=== PATIENT | female | born 1990 | race Caucasian/White ===

== ENCOUNTER 2016-12-04 07:27 | Inpatient (IN) | payer BC, OTHER ==
[2016-12-04] MEDS ORDERED: Dinoprostone* 10 MG VAG.SUPP VAGINAL ONE (09:50)
[2016-12-04] MEDS ORDERED: Nalbuphine* 20 MG/ML 1 ML VIAL IV PRN (19:41)
[2016-12-04] MEDS ORDERED: Promethazine INJ(RESTRICTED)* 25 MG/ML 1 ML VIAL IV PRN (19:44)
[2016-12-04 19:57] LABS: Hematocrit 35 % (35-47); Hemoglobin 11.2 g/dl (12.0-16.0); Mean Corpuscular HGB Conc 32 g/dl (31-36); Mean Corpuscular Hemoglobin 26 pg (27-31); Mean Corpuscular Volume 81 fL (80-97); Mean Platelet Volume 11 um3 (7.4-10.4); Red Blood Count 4.26 10^6/ul (4.0-5.4); Red Cell Distribution Width 17 % (10.5-15); White Blood Count 12.9 10^3/ul (3.5-10.8)
[2016-12-04] MEDS ORDERED: Oxytocin in LR* 20 UNITS/1,000 ML BAG IVPB SCH (20:00)
[2016-12-04 20:12] LABS: EGFR African American 156.7 (>60); EGFR Non-African American 121.8 (>60); Globulin 3.3 g/dL (2-4); Potassium 4.2 mmol/L (3.5-5.0); Total Bilirubin 0.5 mg/dL (0.2-1.0); Total Protein 6.3 g/dL (6.4-8.9); Uric Acid 5.1 mg/dL (2.3-6.6)
[2016-12-05] MEDS ORDERED: OBEPIDURAL* 250 ML ONE ×2 (01:57→12:19)
[2016-12-05] MEDS ORDERED: fentaNYL* 50 MCG/ML 2 ML VIAL (100 MCG VIAL) ONE (01:58)
[2016-12-05] MEDS ORDERED: Sodium Citrate/Citric Acid* 15 ML UDC PO PRN (02:51)
[2016-12-05] MEDS ORDERED: Phenylephrine IV* 40 MCG/ML 10 ML SYRINGE IV PUSH PRN ×2 (02:51)
[2016-12-05] MEDS ORDERED: Famotidine TAB* 20 MG PO PRN (02:51)
[2016-12-05] MEDS ORDERED: OBEPIDURAL* 250 ML EPIDURAL SCH ×2 (03:00→12:00)
[2016-12-05] MEDS ORDERED: D5LR 1000 ML BAG* 1,000 ML IV SCH (08:00)
[2016-12-05] MEDS ORDERED: ceFOXitin 2 GM IVPREMIX* 2 GM/50 ML BAG IVPB ONE (10:15)
[2016-12-05] MEDS ORDERED: ceFOXitin 2 GM IVPREMIX* 2 GM/50 ML BAG ONE (10:15)
[2016-12-05] MEDS ORDERED: Dibucaine 1% 28.35 GM TUBE PR PRN (10:53)
[2016-12-05] MEDS ORDERED: Witch Hazel PAD* JAR TOPICAL PRN (10:53)
[2016-12-05] MEDS ORDERED: Glycerin ADULT SUPP PR PRN (10:53)
[2016-12-05] MEDS ORDERED: OXYTOCIN* 10 UNITS/ML 1 ML VIAL ONE (11:18)
[2016-12-05] MEDS ORDERED: Famotidine IV* 10 MG/ML 2 ML (20 mg) ONE (11:18)
[2016-12-05] MEDS ORDERED: Chloroprocaine 3%* 20 ML VIAL ONE (11:18)
[2016-12-05] MEDS ORDERED: Bupivacaine 0.5% SDV PF* 30 ML VIAL ONE (11:18)
[2016-12-05] MEDS ORDERED: Sodium Citrate/Citric Acid* 15 ML UDC PO ONE (11:37)
[2016-12-05] MEDS ORDERED: Acetaminophen TAB* 325 MG PO PRN ×2 (11:39→11:49)
[2016-12-05] MEDS ORDERED: fentaNYL* 50 MCG/ML 2 ML VIAL (100 MCG VIAL) IV PRN (11:39)
[2016-12-05] MEDS ORDERED: DiMENhydriNATE IV* 50 MG/ML VIAL IV PUSH PRN (11:39)
[2016-12-05] MEDS ORDERED: PROCHLORPERAZINE INJ 5 MG/ML 2 ML VIAL IV PRN (11:49)
[2016-12-05] MEDS ORDERED: oxyCODONE/Acetamin 5/325 MG* TAB PO PRN ×2 (11:49)
[2016-12-05] MEDS ORDERED: EPHEDrine (Pressors)* 50 MG/ML VIAL IV PUSH PRN (11:49)
[2016-12-05] MEDS ORDERED: Ondansetron INJ* 2 MG/ML VIAL IV PRN (11:49)
[2016-12-05] MEDS ORDERED: Nalbuphine* 20 MG/ML 1 ML VIAL IV PRN ×2 (11:49)
[2016-12-05] MEDS ORDERED: Lactated Ringers 500 ml BAG* 500 ML IV PRN (11:49)
[2016-12-05] MEDS ORDERED: Scopolamine 1.5 mg* PATCH TRANSDERM SCH (12:00)
[2016-12-05] MEDS: Docusate CAP* 100 MG PO SCH ×2 (14:25→20:21)
[2016-12-05] MEDS: Simethicone CHEW TAB* 80 MG PO SCH ×3 (14:26→20:21)
[2016-12-05] MEDS: Ibuprofen TAB* 600 MG PO SCH ×2 (14:26→20:20)
[2016-12-05] MEDS: oxyCODONE/Acetamin 5/325 MG* TAB PO PRN ×2 (17:40→22:20)
[2016-12-05] MEDS ORDERED: Phenylephrine IV* 40 MCG/ML 10 ML SYRINGE ONE (18:48)
[2016-12-06] MEDS: Ibuprofen TAB* 600 MG PO SCH ×4 (04:17→19:27)
[2016-12-06] MEDS: oxyCODONE/Acetamin 5/325 MG* TAB PO PRN ×4 (04:17→19:26)
[2016-12-06 07:27] LABS: Hematocrit 26 % (35-47); Hemoglobin 8.4 g/dl (12.0-16.0); Mean Corpuscular HGB Conc 33 g/dl (31-36); Mean Corpuscular Hemoglobin 27 pg (27-31); Mean Corpuscular Volume 81 fL (80-97); Mean Platelet Volume 10 um3 (7.4-10.4); Red Blood Count 3.17 10^6/ul (4.0-5.4); Red Cell Distribution Width 17 % (10.5-15); White Blood Count 13.9 10^3/ul (3.5-10.8)
[2016-12-06] MEDS: Simethicone CHEW TAB* 80 MG PO SCH ×4 (08:37→21:30)
[2016-12-06] MEDS: Docusate CAP* 100 MG PO SCH ×3 (08:37→21:30)
[2016-12-06] MEDS: Ferrous Gluconate TAB* 324 MG TAB PO SCH ×2 (08:37→21:30)
--- NOTE | 2016-12-06 13:25 | OP ---
DATE OF OPERATION: 12/05/16 - ROOM #[id number]-102 DATE OF : 89 SURGEON: Azra Lobo MD ASSISTANTS: Dr. Perez and Bryon Corley CNM. ANESTHESIOLOGIST: Dr. Ruelas. ANESTHESIA: Epidural. PRE-OP DIAGNOSIS: 41 plus 3 weeks gestation with category 2 heart tracing remote from delivery. POST-OP DIAGNOSES: 41 plus 3 weeks gestation with category 2 heart tracing remote from delivery. OPERATIVE PROCEDURE: Primary low-transverse section. ESTIMATED BLOOD LOSS: 800 mL. URINE OUTPUT: 400 mL. IV FLUIDS: 1300 mL Lactated Ringer's. MATERIALS TO LAB: Cord blood. INDICATIONS: This patient is a 26-year-old 1, para 0 who was admitted at 41 plus 2 weeks gestation for induction of labor. The patient's course has been uncomplicated. The patient was induced initially with Cervidil , which was transitioned to Pitocin later that night. She received an epidural for anesthesia overnight. At about 5 o'clock in the morning, the patient was 4 cm dilated and 90% effaced. This was essentially unchanged 3 hours later. During an additional period of observation with regular contractions, the heart tracing was noted to have tachycardia to the 180s. There was moderate variability, but the tachycardia did not improve until Pitocin was discontinued. At that time, the tachycardia still remained in the 160 to 170 range. The cervical examination was unchanged except the cervix had become significantly edematous and the head was still at -1 station. Considering this , the patient was advised to proceed with section and she agreed. She was extensively counseled and consent was signed. FINDINGS: Normal-appearing uterus, fallopian tubes, and ovaries. Delivery was productive of a female weighing 8 pounds 11 ounces with Apgars of 9 and 9. Time of delivery was 1126. COMPLICATIONS: None. DESCRIPTION OF PROCEDURE: The risks, benefits, and alternatives were described to the patient and informed consent was obtained. The patient was taken to the operating room with IV running where epidural anesthesia was induced and found to be adequate. The patient was prepped and draped in the normal sterile fashion in the dorsal supine position with leftward tilt. A Pfannenstiel skin incision was made with a scalpel and this was carried down to the underlying fascia sharply. The fascia was then scored in the midline with the scalpel. The incision was extended using Moyer scissors. The rectus muscles were dissected off the rectus fascia using blunt and sharp dissection. The rectus muscles were in the midline bluntly. The peritoneum was also entered bluntly. A bladder blade was placed. A bladder flap was created sharply using Metzenbaum scissors. A low transverse uterine incision was made with the scalpel. This was carried down to the amniotic cavity which was productive of clear fluid. The incision was extended with blunt traction. The head was elevated to the level of the incision without difficulty and delivered through the incision. With fundal pressure, the shoulders and body delivered without difficulty. The had an excellent tone and cried immediately on delivery. The cord was doubly clamped and cut. The was then handed to the awaiting dowel sander operator. Cord blood was collected. The placenta then delivered with manual extraction. The uterus was then exteriorized and cleared of all clots and debris. The uterine incision was reapproximated using 0 Polysorb in a running-locked fashion. A second layer of imbricating sutures of 0 Polysorb was also placed with good hemostasis. The posterior cul-de-sac was irrigated with saline. The uterus was then returned to the abdomen, and the incision was reinspected and noted to be hemostatic. The peritoneum was closed with 3-0 Polysorb in a running fashion. The fascia was closed with 0 Polysorb in a running fashion. The subcutaneous tissues were reapproximated using 3-0 Polysorb in interrupted sutures. The skin was then closed with 4-0 Monocryl in a subcuticular stitch. Mastisol and Steri-Strips were placed over the incision which was then covered with a sterile bandage. The patient tolerated the procedure well. Sponge, lap, and needle counts were correct x2. [id number]/[facility] #: [id number] [facility], [place]
[2016-12-07] MEDS: oxyCODONE/Acetamin 5/325 MG* TAB PO PRN ×3 (00:21→21:57)
[2016-12-07] MEDS: Ibuprofen TAB* 600 MG PO SCH ×4 (02:48→20:20)
[2016-12-07] MEDS: Docusate CAP* 100 MG PO SCH ×3 (08:07→20:20)
[2016-12-07] MEDS: Ferrous Gluconate TAB* 324 MG TAB PO SCH ×2 (08:07→20:20)
[2016-12-07] MEDS: Simethicone CHEW TAB* 80 MG PO SCH ×4 (08:08→20:20)
--- NOTE | 2016-12-07 09:35 | PTEDU ---
Patient Name: FAHAD BROOKS FAHAD BROOKS selected video: Follow Me Mum: [employer] to view on 7 at 9:34:32 AM from [facility] [id number]
--- NOTE | 2016-12-07 10:05 | PTEDU ---
Patient Name: FAHAD BROOKS FAHAD BROOKS selected video: Follow Me Mum: [employer] to view on 7 at 10:04:07 AM [place] [facility] [id number]
[2016-12-07] MEDS ORDERED: Measles, Mumps,Rubella VACC* 0.5 ML/VIAL SUBCUT ONE (21:19)
[2016-12-08] MEDS: Ibuprofen TAB* 600 MG PO SCH ×3 (02:20→15:10)
[2016-12-08 08:15] VITALS: BP 138/90
[2016-12-08] MEDS: Ferrous Gluconate TAB* 324 MG TAB PO SCH (08:55)
[2016-12-08] MEDS: Simethicone CHEW TAB* 80 MG PO SCH ×2 (08:56→15:11)
[2016-12-08] MEDS: Docusate CAP* 100 MG PO SCH ×2 (08:57→15:11)
[2016-12-08] MEDS ORDERED: Scopolomine PATCH Remove* 1 NOTE MISC PATCH OFF ONE (11:52)
== END 2016-12-08 15:18 | disposition home or self-care (01) | DRG 540 ==
LOC: MCHOBOUT 07:27 → MCHOB 09:43
PROVIDERS: ADMIT Obstetrics & Gynecology; ATTEND Obstetrics & Gynecology
PROC: 3E033VJ Introduction of Other Hormone into Peripheral Vein, Percutaneous Approach (ICD-10-PCS; 2016-12-05)
PROC: 10D00Z1 Extraction of Products of Conception, Low, Open Approach (ICD-10-PCS; principal; 2016-12-05 10:57)
DX: O76 Abnormality in fetal heart rate and rhythm complicating labor and delivery (principal); D64.9 Anemia, unspecified; O48.0 Post-term pregnancy; O90.81 Anemia of the puerperium; Z3A.41 41 weeks gestation of pregnancy; Z37.0 Single live birth
CPT/HCPCS: 36415; 80053; 84550; 85025; 86850; 86900; 86901; 90707; A9270-GY; J0694; J2300; J2400; J2550; J2590; J3010

== ENCOUNTER 2021-08-26 07:11 | Inpatient (IN) ==
[2021-08-26 08:28] LABS: Hematocrit 33 % (35-47); Hemoglobin 11.2 g/dL (12.0-16.0); Mean Corpuscular HGB Conc 34 g/dL (31-36); Mean Corpuscular Hemoglobin 28 pg (27-31); Mean Corpuscular Volume 83 fL (80-97); Platelet Count 188 10^3/uL (150-450); Red Blood Count 3.99 10^6 /uL (3.70-4.87); Red Cell Distribution Width 16 % (10-15); White Blood Count 10.4 10^3/uL (3.5-10.8)
[2021-08-26 08:51] LABS: Urine Benzodiazepine Screen None Detected (None Detect); Urine Cannabinoids Screen None Detected (None Detect); Urine Opiates Screen None Detected (None Detect)
[2021-08-26] MEDS ORDERED: Lactated Ringers 1000 ml BAG 1,000 ML IV ONE ×2 (09:10→10:02)
[2021-08-26] MEDS ORDERED: Buffered Lidocaine 1% SYRIN 1 ml INTRADERM ONE (09:10)
[2021-08-26] MEDS ORDERED: Lidocaine 1% w EPI 1:200,000 SDV 30 ML VIAL ONE (09:37)
[2021-08-26] MEDS ORDERED: Lactated Ringers 1000 ml BAG 1,000 ML IV SCH ×4 (10:00→19:00)
[2021-08-26] MEDS ORDERED: Phenylephrine 40 mcg/mL 10mL (400mcg) SYRINGE IV PUSH PRN ×2 (10:02)
[2021-08-26] MEDS ORDERED: Sodium Citrate/Citric Acid LIQ 15 ML UDC PO PRN (10:02)
[2021-08-26] MEDS ORDERED: Lactated Ringers 1000 ml BAG 500 ML IV PRN ×2 (10:02)
[2021-08-26] MEDS ORDERED: OBEPIDURAL (200 ML) 200 ML EPIDURAL SCH (11:00)
[2021-08-26 11:25] LABS: Urine Appearance Clear; Urine Bilirubin Negative (Negative); Urine Blood 3+ (Negative); Urine Color Yellow; Urine Glucose Negative (Negative); Urine Ketones 1+ (Negative); Urine Nitrite Negative (Negative); Urine Protein Negative (Negative); Urine Specific Gravity 1.006 (1.002-1.030); Urine Urobilinogen Negative (Negative)
[2021-08-26 11:31] LABS: Urine Bacteria Absent (Absent); Urine Red Blood Cell 1+(3-5/hpf) (Absent); Urine Squamous Epithelial Cell Present (Absent); Urine White Blood Cell Trace(0-5/hpf) (Absent)
[2021-08-26 12:38] LABS: Urine Benzodiazepine Screen None Detected (None Detect); Urine Cannabinoids Screen None Detected (None Detect); Urine Opiates Screen None Detected (None Detect)
[2021-08-26] MEDS ORDERED: ceFOXitin 2 GM IVPREMIX 2 GM/50 ML BAG ONE (16:17)
[2021-08-26] MEDS ORDERED: Sodium Citrate/Citric Acid LIQ 15 ML UDC PO ONE (16:20)
[2021-08-26] MEDS ORDERED: ceFOXitin 2 GM IVPREMIX 2 GM/50 ML BAG IVPB ONE (16:20)
[2021-08-26] MEDS ORDERED: Witch Hazel PAD JAR TOPICAL PRN (18:17)
[2021-08-26] MEDS ORDERED: Glycerin ADULT 2.4 gm SUPP PR PRN (18:17)
[2021-08-26] MEDS ORDERED: Dibucaine 1% OINT 28.35 GM TUBE PR PRN (18:17)
[2021-08-26] MEDS ORDERED: Varicella Virus Vaccine Live 0.5 ML VIAL SUBCUT ONE (18:19)
[2021-08-26] MEDS ORDERED: Tetan/Diph/Pertus SYR(Tdap) 0.5 ML SYR(BOOSTRIX) use SYR contains LATEX IM ONE (18:21)
[2021-08-26] MEDS ORDERED: diPHENhydraMINE IV 50 MG/ML 1 ml VIAL (BENADRYL) IV PRN (18:26)
[2021-08-26] MEDS ORDERED: Ondansetron 4 mg VIAL 2 MG/ML 2 ml VIAL IV PRN (18:26)
[2021-08-26] MEDS ORDERED: DiMENhydriNATE IV 50 mg/ml 1 ml VIAL IV PUSH PRN (18:26)
[2021-08-26] MEDS ORDERED: Naloxone 0.4 mg VIAL 0.4 mg/ml 1 ml VIAL IV PRN ×2 (18:26)
[2021-08-26] MEDS ORDERED: fentaNYL 100 mcg/2 ml 50 MCG/ML VIAL IV PRN (18:26)
[2021-08-26] MEDS ORDERED: Oxytocin in LR 20 UNITS/1,000 ML BAG IVPB SCH (19:00)
[2021-08-26 20:41] LABS: Hematocrit 28 % (35-47); Hemoglobin 9.4 g/dL (12.0-16.0)
[2021-08-27 07:33] LABS: ABS Eosinophils 0.1 10^3/ul (0-0.6); ABS Lymphocytes 1.9 10^3/ul (1.0-4.8); ABS Monocytes 0.8 10^3/ul (0-0.8); ABS Neutrophils 8.9 10^3/ul (1.5-7.7); Eosinophil % 0.6 %; Hematocrit 25 % (35-47); Hemoglobin 8.4 g/dL (12.0-16.0); Lymphocyte % 16.2 %; Mean Corpuscular HGB Conc 33 g/dL (31-36); Mean Corpuscular Hemoglobin 28 pg (27-31); Mean Corpuscular Volume 84 fL (80-97); Mean Platelet Volume 9.8 fL (7.4-10.4); Platelet Count 157 10^3/uL (150-450); Red Blood Count 2.99 10^6 /uL (3.70-4.87); Red Cell Distribution Width 16 % (10-15); White Blood Count 11.7 10^3/uL (3.5-10.8)
[2021-08-29 09:37] VITALS: BP 131/83
== END 2021-08-29 13:10 | disposition home or self-care (01) | DRG 540 ==
LOC: MCHOBOUT 07:11 → MCHOB 07:48
PROVIDERS: ADMIT Obstetrics & Gynecology; ATTEND Obstetrics & Gynecology

== ENCOUNTER 2023-09-09 05:37 | Inpatient (IN) ==
[2023-09-09] MEDS: Lactated Ringers 1000 ml BAG 1,000 ML IV SCH ×2 (06:15→07:00)
[2023-09-09] MEDS: Sodium Citrate/Citric Acid LIQ 15 ML UDC PO ONE (07:36)
[2023-09-09] MEDS: ceFAZolin 2 GM PREMIX 2 GM/50 ML BAG ONE (08:20)
[2023-09-09] MEDS ORDERED: Metoclopramide 5 MG/ML VIAL (10 mg) IV PRN (08:39)
[2023-09-09] MEDS ORDERED: Ondansetron 4 mg VIAL 2 MG/ML 2 ml VIAL IV PRN (08:39)
[2023-09-09] MEDS ORDERED: Naloxone 0.4 mg VIAL 0.4 mg/ml 1 ml VIAL IV PUSH PRN (08:39)
[2023-09-09] MEDS: Oxytocin in LR 20,000 MILLI.UNIT/1,000 ML BAG IV SCH (09:00)
[2023-09-09] MEDS ORDERED: Witch Hazel PAD JAR TOPICAL PRN (09:41)
[2023-09-09] MEDS ORDERED: Dibucaine 1% OINT 28.35 GM TUBE PR PRN (09:41)
[2023-09-09] MEDS ORDERED: Glycerin ADULT 2.4 gm SUPP PR PRN (09:41)
[2023-09-09 09:44] LABS: Urine Appearance Clear; Urine Bilirubin Negative (Negative); Urine Blood Negative (Negative); Urine Color Light-Yellow; Urine Glucose Negative (Negative); Urine Ketones Negative (Negative); Urine Nitrite Negative (Negative); Urine Protein Negative (Negative); Urine Specific Gravity 1.009 (1.002-1.030); Urine Urobilinogen Negative (Negative)
[2023-09-09] MEDS ORDERED: Lactated Ringers 1000 ml BAG 1,000 ML IV SCH (10:00)
[2023-09-09] MEDS: Acetaminophen IV 1 GM/100ML 1,000 MG/100 ML BAG IV PRN (10:56)
[2023-09-09] MEDS ORDERED: Varicella Virus Vaccine Live 0.5 ML VIAL SUBCUT ONE (12:00)
[2023-09-09] MEDS: ceFAZolin 2 GM PREMIX 2 GM/50 ML BAG IVPB ONE (12:48)
[2023-09-09] MEDS: Buffered Lidocaine 1% SYRIN 1 ml INTRADERM ONE (14:57)
[2023-09-10 07:15] LABS: ABS Eosinophils 0.1 10^3/uL (0.0-0.5); ABS Lymphocytes 2.3 10^3/uL (1.0-4.8); ABS Monocytes 0.8 10^3/uL (0.0-0.9); ABS Neutrophils 8.7 10^3/uL (1.5-7.6); ABS Nucleated RBC 0.01 10^3/ul; Eosinophil % 0.9 %; Hematocrit 27.5 % (35-45); Hemoglobin 9.1 g/dL (11.5-14.3); Lymphocyte % 19.2 %; Mean Corpuscular Hemoglobin 26.2 pg (27-33); Mean Corpuscular Hgb Conc 33.2 g/dL (31-36); Mean Platelet Volume 9.8 fL (7.5-11.2); Nucleated Red Blood Cells % 0.1 %/100WBC (0.0-0.8); Platelet Count 165 10^3/uL (150-450); Red Blood Count 3.47 10^6/uL (3.63-4.92); Red Cell Distribution Width 16.3 % (12-17); White Blood Count 11.9 10^3/uL (3.8-11.8)
[2023-09-10] MEDS: ceFOXitin 2 GM IVPREMIX 2 GM/50 ML BAG IVPB ONE (19:57)
[2023-09-10] MEDS: Varicella Virus Vaccine Live 0.5 ML VIAL SUBCUT ONE (21:12)
[2023-09-11 08:19] VITALS: BP 121/81
== END 2023-09-11 11:17 | disposition home or self-care (01) | DRG 540 ==
LOC: MCHOB 05:37
PROVIDERS: ADMIT Obstetrics & Gynecology; ATTEND Obstetrics & Gynecology